=== PATIENT | male | born 1960 | race Caucasian/White ===

== ENCOUNTER 2020-07-29 16:13 | Outpatient (REF) | payer OTHER, SELFPAY ==
--- NOTE | 2020-07-29 16:18 | MR_ITS ---
EXAMINATION: MR HIP WITHOUT AND WITH CONTRAST, LEFT CLINICAL INFORMATION: Left thigh mass. COMPARISON: None TECHNIQUE: MRI of the left hip was performed before and after the intravenous administration of 10 mL Gadavist on a high-field scanner. A skin marker was placed which is located in the proximal anterolateral left thigh. FINDINGS: There are no bone marrow abnormalities in the visualized left femur. The muscles and tendons appear normal. The subcutaneous tissues are unremarkable. No discrete mass lesion is identified. There are no enhancing abnormalities. MR/MR femur LT wo/w con IMPRESSION: No discrete mass or enhancing lesion is identified.
== END 2020-07-29 16:14 | disposition home or self-care (01) ==
LOC: HO.MRI 16:13
PROVIDERS: Visit Provider Internal Medicine
DX: R22.32 Localized swelling, mass and lump, left upper limb (principal)
CPT/HCPCS: 73720

== ENCOUNTER → 2020-08-05 13:49 | Outpatient (BNVA) | payer OTHER, SELFPAY | PROVIDERS: PCP Family Medicine; Visit Provider Surgery | DX: D17.24 Benign lipomatous neoplasm of skin and subcutaneous tissue of left leg (principal) | CPT/HCPCS: 99202; A9585 ==

== ENCOUNTER 2020-08-30 09:53 | Day surgery (SDC) | payer OTHER, SELFPAY ==
[2020-08-26 10:37] VITALS: BMI 35.2
[2020-08-29 08:26] VITALS: BMI 35.2
--- NOTE | 2020-08-29 10:55 | HO.ANESPROP2 ---
Documented by User: Ghazal De Los Santos 08/29/20 10:56 HPI - Anesthesia Eval Consult details Narrative: 60yo M for Excision Lipoma to left thigh PMFSH Past Medical History Medical History High BMI Hypertension Lipoma of left thigh Sleep apnea Family History Family History Father History of melanoma Surgical History Surgical History H/O colonoscopy History of knee replacement procedure of left knee History of knee replacement procedure of right knee History of splenectomy Social History Social History Alcohol intake: current Alcohol intake frequency: holidays/special occasions only Smoking Status: Never smoker Second Hand Smoke Exposure: No Use of substances other than those prescribed or required for medical reasons: No Advance Directives: No Advance Directives Information Provided: No Advance Directives on File: No Meds Allergies Allergy/AdvReac Type Severity Reaction Status Date / Time eggplant [EGGPLANT] AdvReac Intermediate VOMITING Verified 08/30/20 10:21 BLUE CHEESE AdvReac Intermediate VOMITING Uncoded 04/25/20 14:44 Home Medications Medication Instructions Recorded Confirmed Type lisinopril 5 mg tablet 5 mg PO DAILY 08/05/20 08/26/20 History Exam Exam Date and Time: August 29, 2020 1055 Height,Weight and Vital Signs: Height 5 ft 9 in Weight 108 kg Assessment and Plan Assessment Anesthesia Assessment: Chart Reviewed Documented by User: Citlali Huerta 08/30/20 11:02 PMFSH Past Medical History Medical History High BMI Hypertension Lipoma of left thigh Sleep apnea Family History Family History Father History of melanoma Surgical History Surgical History H/O colonoscopy History of knee replacement procedure of left knee History of knee replacement procedure of right knee History of splenectomy Social History Social History Alcohol intake: current Alcohol intake frequency: holidays/special occasions only Smoking Status: Never smoker Second Hand Smoke Exposure: No Use of substances other than those prescribed or required for medical reasons: No Advance Directives: No Advance Directives Information Provided: No Advance Directives on File: No Meds Allergies Allergy/AdvReac Type Severity Reaction Status Date / Time eggplant [EGGPLANT] AdvReac Intermediate VOMITING Verified 08/30/20 10:21 BLUE CHEESE AdvReac Intermediate VOMITING Uncoded 04/25/20 14:44 Home Medications Medication Instructions Recorded Confirmed Type lisinopril 5 mg tablet 5 mg PO DAILY 08/05/20 08/26/20 History Exam Airway Mallampati Class: II TM Dist: >3cm Neck ROM: Full Heart: RRR Lungs: CTA
[2020-08-30 10:25] VITALS: BP 144/84; PULSE 75; RESP 18; TEMP 36.8; O2SAT 97
[2020-08-30] MEDS: ceFAZolin Sodium/Dextrose,Iso 2 GM/50 ML PIGGYBACK IV (10:56)
[2020-08-30] MEDS: Lactated Ringers 1,000 ML 100 ML IVCONT (10:56)
--- NOTE | 2020-08-30 10:59 | MHC.SHP ---
Pre-Procedural Eval Section B Chief Complaint: lipoma of left thigh Allergies: Allergies Allergy/AdvReac Type Severity Reaction Status Date / Time eggplant [EGGPLANT] AdvReac Intermediate VOMITING Verified 08/30/20 10:21 BLUE CHEESE AdvReac Intermediate VOMITING Uncoded 04/25/20 14:44 Plan I have reviewed the history and physical and performed a pertinent physical examination on my patient. No changes have occurred unless specified.
--- NOTE | 2020-08-30 12:05 | PM.OP ---
Brief Operative Note Date of Service: 08/30/20 Pre-op diagnosis: lipoma left thigh Post-op diagnosis: same Procedure: exc lipoma left thigh Surgeon: Sammy Tian MD Anesthesia: MAC Estimated blood loss (mL): 3 Pathology: other (lipoma) Condition: stable Disposition: PACU
[2020-08-30 12:10] VITALS: BP 124/78; PULSE 64; RESP 16; TEMP 36.3; O2SAT 96
[2020-08-30 12:25] VITALS: BP 137/65; PULSE 60; RESP 16; O2SAT 97
--- NOTE | 2020-08-30 12:43 | OP_ITS ---
SURGEON: Sammy Tian MD INDICATIONS: The patient is a 60-year-old male with a vague mass on the left anterior thigh, which seemed to be subcutaneous. He was seen in the office. The mass itself was very vague, but appeared to be about 6 to 7 cm. I therefore scheduled him for an excision under anesthesia in view of the vague nature of the mass. I explained to him the technique of procedure as well as the risks, benefits, and alternatives. PREOPERATIVE DIAGNOSIS: Lipoma, left thigh anteriorly. POSTOPERATIVE DIAGNOSIS: Lipoma, left thigh anteriorly. PROCEDURE PERFORMED: Excision of lipoma, left thigh anteriorly. ESTIMATED BLOOD LOSS: COMPLICATIONS: ANESTHESIA: ASSISTANTS: SPECIMENS: DESCRIPTION OF PROCEDURE: He was brought to the operating room, placed in supine position under monitored anesthesia care. The anterior thigh was prepped and draped in usual sterile fashion. A surgical time-out was done. The patient received cefazolin 2 g IV preoperatively. I made a short incision on the skin overlying this vague prominence using blade #15, it was carried down to full-thickness skin and subcutaneous fat. I used electrocautery to divide through this layer after infiltration with lidocaine. I then proceeded to continue to sharply dissect, exploring the area in the meantime as we deepened the incision. There was really no definite mass that I could see except for lobules of what appeared to be lipomatous tissue, which was not well defined with margin. We proceeded to excised this within the subcutaneous layer. I made a short incision on the fascia of the quadriceps to check if there was any lipomatous mass underneath the fascia and there was none. I then proceeded to continue to remove all debris of lipomatous looking tissue in the subcutaneous layer. I continued to explore the entire area and there was no other palpable mass nor any visible mass. I then copiously irrigated. I reapposed the subcutaneous layer with Dexon 3-0 interrupted sutures. Skin closure achieved with Dexon 4-0 subcuticular running stitch. The incision was about 4 cm long. Steri-Strips and dressings were applied. The patient tolerated the procedure well. There were no complications noted. Blood loss about 5 mL. The patient was then transferred to recovery room with stable vital signs. I will see him in the office for wound check and discussed with him path report. MD AKSHAT Mitchell/SINCERE / [id number]
== END 2020-08-30 13:32 | disposition home or self-care (01) ==
PROVIDERS: PCP Internal Medicine; Visit Provider Surgery
PROC: (CPT 27337; principal; 2020-08-30 12:10)
DX: D17.24 Benign lipomatous neoplasm of skin and subcutaneous tissue of left leg (principal); I10 Essential (primary) hypertension; G47.30 Sleep apnea, unspecified; Z96.653 Presence of artificial knee joint, bilateral; Z90.81 Acquired absence of spleen; Z79.899 Other long term (current) drug therapy
CPT/HCPCS: 27337; 88304; J0690; J2250; J3010

== ENCOUNTER → 2020-09-12 09:52 | Outpatient (BNVA) | payer OTHER, SELFPAY | PROVIDERS: PCP Internal Medicine; Visit Provider Surgery | DX: Z48.89 Encounter for other specified surgical aftercare (principal) | CPT/HCPCS: 99212 ==

== ENCOUNTER → 2020-12-11 13:55 | Outpatient (BNVA) | payer OTHER, SELFPAY | PROVIDERS: PCP Internal Medicine; Referring Provider Internal Medicine; Visit Provider Surgery | DX: Z85.828 Personal history of other malignant neoplasm of skin (principal) | CPT/HCPCS: 99212 ==

== ENCOUNTER → 2021-04-28 13:04 | Outpatient (BNVA) | payer SELFPAY | PROVIDERS: PCP Internal Medicine; Visit Provider Physician Assistant Medical | DX: Z02.79 Encounter for issue of other medical certificate (principal) ==

== ENCOUNTER 2023-11-09 09:02 | Day surgery (SDC) | payer OTHER, SELFPAY ==
[2023-11-05 13:42] VITALS: BMI 34.7
--- NOTE | 2023-11-08 08:37 | HO.ANESPROP2 ---
Documented by User: Ghazal De Los Santos NP 11/08/23 08:39 HPI - Anesthesia Eval Consult details Narrative: 63yo M for Colonoscopy [facility] Active Problems Active Problems: All Active Problems (Updated 08/26/20 @ 10:36 by Sanaz Andrea, RADHA) Lipoma of left thigh (Acute) Hypertension (Acute) High BMI (Acute) Past Medical History Medical History High BMI Hypertension Lipoma of left thigh Sleep apnea Family History Family History Father History of melanoma Surgical History Surgical History H/O colonoscopy History of knee replacement procedure of left knee History of knee replacement procedure of right knee History of splenectomy Social History Social History Alcohol intake: current Alcohol intake frequency: holidays/special occasions only Patient Tobacco Use Status: Current everyday Tobacco user Tobacco use type: Cigarette Second Hand Smoke Exposure: No Meds Allergies Allergy/AdvReac Type Severity Reaction Status Date / Time eggplant [EGGPLANT] AdvReac Intermediate VOMITING Verified 12/11/20 14:04 BLUE CHEESE AdvReac Intermediate VOMITING Uncoded 04/25/20 14:44 Home Medications Medication Instructions Recorded Confirmed Last Taken Type lisinopril 5 mg tablet 20 mg PO DAILY 08/05/20 11/09/23 11/09/23 History Exam Height,Weight and Vital Signs: Height 5 ft 8 in Weight 103.419 kg Assessment and Plan Assessment Anesthesia Assessment: Chart Reviewed Documented by User: Gary Alexander MD 11/09/23 10:38 [facility] Past Medical History Medical History High BMI Hypertension Lipoma of left thigh Sleep apnea Family History Family History Father History of melanoma Family history of problems with anesthesia: No Surgical History Surgical History H/O colonoscopy History of knee replacement procedure of left knee History of knee replacement procedure of right knee History of splenectomy History of Problems with Anesthesia: No Social History Social History Alcohol intake: current Alcohol intake frequency: holidays/special occasions only Patient Tobacco Use Status: Current everyday Tobacco user Tobacco use type: Cigarette Second Hand Smoke Exposure: No Meds Allergies Allergy/AdvReac Type Severity Reaction Status Date / Time eggplant [EGGPLANT] AdvReac Intermediate VOMITING Verified 12/11/20 14:04 BLUE CHEESE AdvReac Intermediate VOMITING Uncoded 04/25/20 14:44 Home Medications Medication Instructions Recorded Confirmed Last Taken Type lisinopril 5 mg tablet 20 mg PO DAILY 08/05/20 11/09/23 11/09/23 History Exam Airway Mallampati Class: I TM Dist: <=3cm Neck ROM: Full Heart: ok Lungs: ok Assessment and Plan Assessment Anesthesia Assessment: Anesthesia Plan Discussed Final Anesthetic Review Family History of Problems with Anesthesia: No History of Problems with Anesthesia: No NPO: Yes ASA Class: III Final Preanesthetic Review: No Changes in Pt Med Stat, Meds/Allgs Chart Reviewed, Consent Obtained/Reviewed and Anes Risks/Benef Reviewed Patient Risk: Intermediate Procedure Risk: Low Anesthetic Plan Anesthetic Plan: MAC: and Agree w/ Assess. and Plan Disposition: Standard PACU
[2023-11-09 10:00] VITALS: BP 146/75; PULSE 65; RESP 18; TEMP 36.1; O2SAT 95; BMI 34.1
[2023-11-09 10:17] VITALS: BMI 34.1
[2023-11-09] MEDS: Lactated Ringers 1,000 ML 100 ML IVCONT (10:18)
--- NOTE | 2023-11-09 10:36 | MHC.SHP ---
Pre-Procedural Eval Section A - 24 Hr Update-Section A only Date of Service: 11/09/23 Section B - Complete if H&P > 30 days Chief Complaint: screening Details of Present Illness: see H&P no changes Relevant Family History (Specify if Yes): No Relevant Social History: None Present Medications: see Short Stay Collaborative assessment Medical History: No relevant PMH History of Previous Operations: No relevant previous surgery Allergies: Allergies Allergy/AdvReac Type Severity Reaction Status Date / Time eggplant [EGGPLANT] AdvReac Intermediate VOMITING Verified 12/11/20 14:04 BLUE CHEESE AdvReac Intermediate VOMITING Uncoded 04/25/20 14:44 Review of Systems Sugical H&P ROS: Negative: Constitution, Cardiovascular, Respiratory, Neurological, Psychiatric, Hem-Onc, Allergic/Immunologic, Gastrointestinal, Genitourinary, Musculoskeletal, Integumentary, Endocrine and Eyes/Ears/Nose/Throat Exam Surgical H&P Exam: Normal: HEENT, Normal: Heart, Normal: Lungs, Normal: Extremities, Normal: Abdomen, Normal: Skin and Normal: Neurological Plan Diagnosis/Plan: Unchanged I have reviewed the history and physical and performed a pertinent physical examination on my patient. No changes have occurred unless specified. Time Spent With Patient Time: Total time managing care of this patient today ____ minutes.
[2023-11-09 11:15] VITALS: BP 116/67; PULSE 66; RESP 16; TEMP 36.4; O2SAT 96
[2023-11-09 11:30] VITALS: BP 139/82; PULSE 59; RESP 16; TEMP 36.2; O2SAT 98
--- NOTE | 2023-11-09 12:18 | OP_ITS ---
DATE OF SERVICE: 11/09/2023 SURGEON: Edgard Bunch MD INDICATIONS: Colon cancer screening. PREOPERATIVE DIAGNOSIS: POSTOPERATIVE DIAGNOSIS: PROCEDURE PERFORMED: Colonoscopy to the terminal ileum. ESTIMATED BLOOD LOSS: COMPLICATIONS: ANESTHESIA: Monitored anesthesia care. ASSISTANTS: SPECIMENS: DESCRIPTION OF PROCEDURE: A history and physical was performed. The risks and benefits of the procedure were explained to the patient. Informed consent was obtained. The patient was placed in the left lateral decubitus position. A digital rectal exam was performed and was found to be normal. The Olympus pediatric video colonoscope was introduced into the rectum and advanced to the cecum. The cecum was identified by transillumination, palpation, and identification of ileocecal valve. Examination was performed. The scope was removed. He tolerated the procedure well and was returned to the recovery area in stable condition. FINDINGS: The terminal ileum was examined and appeared normal. The visualized colonic mucosa was normal. The quality of the prep was fair with some liquid and undigested material present in the colon. This was washed and suctioned as best possible. No polyps were identified. Retroflexed examination showed some small internal hemorrhoids. IMPRESSION: Normal colonoscopy. RECOMMENDATION: 1. Follow up as needed. 2. Repeat colonoscopy is recommended in 10 years for average risk individuals. MD POLI Viera/SINCERE / [id number]
== END 2023-11-09 12:00 | disposition home or self-care (01) ==
PROVIDERS: PCP Internal Medicine; Visit Provider Internal Medicine Gastroenterology
PROC: 0DJD8ZZ Inspection of Lower Intestinal Tract, Via Natural or Artificial Opening Endoscopic (ICD-10-PCS; CPT 45378; principal; 2023-11-09 11:20)
DX: Z12.11 Encounter for screening for malignant neoplasm of colon (principal); K64.8 Other hemorrhoids; I10 Essential (primary) hypertension
CPT/HCPCS: 45378; J2704

== ENCOUNTER → 2023-11-12 11:20 | Outpatient (BNV) | payer OTHER, SELFPAY | PROVIDERS: PCP Internal Medicine; Referring Provider Internal Medicine; Visit Provider Internal Medicine | DX: D69.6 Thrombocytopenia, unspecified (principal) | CPT/HCPCS: 99204; 99213 ==